=== PATIENT | male | born 1935 | race Caucasian/White ===

== ENCOUNTER → 2018-01-07 07:49 | Outpatient (CLI) | payer MEDICARE, BC, SELFPAY ==
[2018-01-07 14:01] LABS: Alanine Aminotransferase 28 U/L (12-78); Albumin Level 4.1 gm/dL (3.4-5.0); Albumin/Globulin Ratio 1.2 (1.1-1.8); Alkaline Phosphatase 88 U/L (46-116); Aspartate Amino Transferase 17 U/L (15-37); Bilirubin,Total 0.5 mg/dL (0.2-1.0); Blood Urea Nitrogen 24 mg/dL (7-18); Calcium 9.1 mg/dL (8.5-10.1); Carbon Dioxide 29 mmol/L (21.0-32.0); Chloride 102 mmol/L (98-107); Chol/HDL Ratio 5.7 (1-3.5); Cholesterol 178 mg/dL (140-200); Creatinine,Serum 1.13 mg/dL (0.70-1.30); Estimated Glomerular Filt Rate 62 ml/min (>60); GFR (African American) 75 ML/MIN (>60); Globulin 3.3 gm/dl (1.3-3.2); Glucose 139 mg/dL (74-106); HDL Cholesterol 31 mg/dL (27-67); LDL Cholesterol 116 mg/dL (0-130); Sodium 140 mmol/L (136-145); Thyroid Stimulating Hormone 1.88 uIU/ml (0.358-3.740); Total Protein,Serum 7.4 gm/dL (6.4-8.2); Triglycerides 156 mg/dL (30-200); VLDL Cholesterol 31 mg/dL (0-40)
[2018-01-07 14:12] LABS: Basophils # 0.1 K/mm3 (0-0.2); Basophils % 0.6 % (0.1-2.0); Eosinophils # 0.4 K/mm3 (0.0-0.4); Eosinophils % 5.5 % (0.1-12.0); Hematocrit 47.5 % (42.0-52.0); Hemoglobin 15.7 g/dL (14.1-18.0); Lymphocytes # 1.5 K/mm3 (0.7-4.5); Lymphocytes % 18.2 K/mm3 (10-50); Mean Corpuscular HGB Conc 33.1 g/dL (31.8-35.4); Mean Corpuscular Hemoglobin 31.4 pg (27.0-31.2); Mean Corpuscular Volume 95.1 fl (80-94); Mean Platelet Volume 9.1 fl (7.4-10.4); Monocytes # 0.5 K/mm3 (0.1-1.0); Monocytes % 5.9 % (1.7-9.3); Neutrophils # 5.6 K/mm3 (1.8-7.8); Neutrophils % 69.8 % (37.0-80.0); Platelet Count 159 K/mm3 (142-424); Red Cell Distribution Width 12.4 % (11.5-17.5)
== END ==
PROVIDERS: PCP Internal Medicine Adolescent Medicine; Visit Provider Internal Medicine Adolescent Medicine
DX: E78.5 Hyperlipidemia, unspecified (principal); E11.9 Type 2 diabetes mellitus without complications; L29.9 Pruritus, unspecified
CPT/HCPCS: 36415; 80053; 80061; 84443; 85025

== ENCOUNTER → 2020-06-23 07:55 | Outpatient (CLI) | payer MEDICARE, BC, SELFPAY ==
[2020-06-23 15:22] LABS: Basophils % 0.5 % (0.1-2.0); Eosinophils # 0.3 K/mm3 (0.0-0.4); Eosinophils % 3.4 % (0.1-12.0); Hematocrit 45.4 % (42.0-52.0); Hemoglobin 15.7 g/dL (14.1-18.0); Lymphocytes # 1.4 K/mm3 (0.7-4.5); Mean Corpuscular HGB Conc 34.6 g/dL (31.8-35.4); Mean Corpuscular Hemoglobin 33.5 pg (27.0-31.2); Mean Corpuscular Volume 96.7 fl (80-94); Mean Platelet Volume 9.7 fl (7.4-10.4); Monocytes # 0.5 K/mm3 (0.1-1.0); Monocytes % 6.8 % (1.7-9.3); Neutrophils # 5.8 K/mm3 (1.8-7.8); Neutrophils % 72.3 % (37.0-80.0); Platelet Count 140 K/mm3 (142-424); Red Cell Distribution Width 13.5 % (11.5-17.5)
[2020-06-23 15:28] LABS: Chloride 98 mmol/L (98-107); Sodium 136 mmol/L (136-145)
[2020-06-23 15:31] LABS: Alanine Aminotransferase 19 U/L (12-78); Albumin Level 4.1 g/dl (3.5-5.0); Albumin/Globulin Ratio 1.5 (1.1-1.8); Alkaline Phosphatase 90 U/L (38-126); Aspartate Amino Transferase 25 U/L (17-59); Blood Urea Nitrogen 16 mg/dl (9-20); Carbon Dioxide 28 mmol/L (22.0-30.0); Estimated Glomerular Filt Rate 80 ml/min (>60); GFR (African American) 97 ML/MIN (>60); Globulin 2.7 g/dL (1.3-3.2); Total Protein,Serum 6.8 g/dl (6.3-8.2)
[2020-06-23 15:32] LABS: Chol/HDL Ratio 4.8 (1-3.5); Cholesterol 167 mg/dl (140-200); Glucose 141 mg/dl (74-100); HDL Cholesterol 35 mg/dl (40-60); Triglycerides 110 mg/dl (30-150); VLDL Cholesterol 22 mg/dL (0-40)
[2020-06-23 15:43] LABS: Direct LDL Cholesterol 118.43 mg/dL (100-129)
[2020-06-23 16:31] LABS: Hemoglobin A1C 6.3 % (4.0-6.0)
== END ==
PROVIDERS: Visit Provider Internal Medicine Adolescent Medicine
DX: E11.9 Type 2 diabetes mellitus without complications (principal); E78.5 Hyperlipidemia, unspecified
CPT/HCPCS: 36415; 80053; 80061; 83036; 85025

== ENCOUNTER 2020-08-09 09:00 | Outpatient (RCR) | payer MEDICARE, BC, SELFPAY ==
--- NOTE | 2020-07-19 11:20 | HMH.PTOPEV ---
PT Outpatient Evaluation Rehab PT Outpatient Evaluation Start: 07/19/20 09:29 Freq: Status: Active Protocol: Document 07/19/20 09:29 [email or web address] (Rec: 07/19/20 09:58 [email or web address] [id number]) Electronically Signed By Manish Cunha, PT 07/19/20 09:29 Outpatient Therapy Subjective History Subjective History Pt. is a 85 year old male who presents to Outpatient PT clinic w/ complaints of chronic and constant but variable RLB/RLE P! of insidious onset for one year. Pt. reports symptoms were intermittent after onset, but have progressively worsened. Pt. reports symptoms worsening w/ sitting and symptom relief w/ standing/ ambulating. Pt. describes symptoms as a deep ache in the calf and numbness in the foot. Pt. reports some increased stiffness in the LLE w/ prolonged sitting, but RLE>LLE overall. Pt. denies having recent diagnostic imaging nor injections for current pathology. Current medications include for Hypertension(pt. unable to recall prescription name at this time). PMH includes Hypertension. Chief Complaint Pain,Stiff,Paresthesia Symptom Type Ache,Numbness Symptoms Relieved By Activity Symptoms Aggravated By Sitting,Bending/Stooping Prior Functional Limitations None Current Functional Limitations Driving,Sleeping,Sitting, Bending/Stooping Symptom Description Constant but Variable Level of pain today (0-10) 5 Pain scale - at its best (0-10) 4 Pain scale - at its worst (0-10) 7 Lumbopelvic Eval Posture Thoracic Spine Posture Standing Position Neutral Lumbar Spine Posture Standing Position Decreased Lordosis Assistive device Assistive Devices None / NA Gait Observation General Gait Pattern Observation No Deviations/Normal Palapation tenderness right thoracic spinal tenderness No lumbar spinal tenderness Yes: L1/L3/L4/L5 buttock tenderness Yes Lumbar/Sacral Palpation Findings Tenderness Lumbar/Sacral Palpation Overall Comment grade 3 +TTP to R QL, assessment
== END 2020-08-09 11:00 | disposition home or self-care (01) ==
LOC: PT.CARL 09:00
PROVIDERS: PCP Internal Medicine Adolescent Medicine; Visit Provider Internal Medicine Adolescent Medicine
DX: M54.31 Sciatica, right side (principal)
CPT/HCPCS: 97014; 97110; 97140; 97163; G0283

== ENCOUNTER → 2020-12-14 10:34 | Outpatient (CLI) | payer MEDICARE, BC, SELFPAY ==
[2020-12-14 14:22] LABS: Chloride 101 mmol/L (98-107); Hemoglobin A1C 6.4 % (4.0-6.0); Potassium 4.1 mmoL/L (3.5-5.1); Sodium 137 mmol/L (136-145)
[2020-12-14 14:25] LABS: Alanine Aminotransferase 18 U/L (12-78); Albumin Level 4.2 g/dl (3.5-5.0); Albumin/Globulin Ratio 1.4 (1.1-1.8); Alkaline Phosphatase 95 U/L (38-126); Anion Gap 11.1 mEq/L (5-15); Aspartate Amino Transferase 26 U/L (17-59); Bilirubin,Total 0.9 mg/dl (0.2-1.3); Blood Urea Nitrogen 16 mg/dl (9-20); Calcium 8.9 mg/dl (8.4-10.2); Carbon Dioxide 29 mmol/L (22.0-30.0); Cholesterol 175 mg/dl (140-200); Estimated Glomerular Filt Rate 80 ml/min (>60); GFR (African American) 97 ML/MIN (>60); Glucose 141 mg/dl (74-100); Total Protein,Serum 7.2 g/dl (6.3-8.2); Triglycerides 120 mg/dl (30-150); VLDL Cholesterol 24 mg/dL (0-40)
[2020-12-14 14:26] LABS: Chol/HDL Ratio 5.1 (1-3.5); HDL Cholesterol 34 mg/dl (40-60)
[2020-12-14 15:01] LABS: Basophils % 0.6 % (0.1-2.0); Eosinophils # 0.3 K/mm3 (0.0-0.4); Eosinophils % 4.2 % (0.1-12.0); Hematocrit 46.1 % (42.0-52.0); Hemoglobin 15.9 g/dL (14.1-18.0); Lymphocytes # 1.2 K/mm3 (0.7-4.5); Lymphocytes % 17.3 % (10-50); Mean Corpuscular HGB Conc 34.5 g/dL (31.8-35.4); Mean Corpuscular Hemoglobin 32.3 pg (27.0-31.2); Mean Corpuscular Volume 93.9 fl (80-94); Mean Platelet Volume 9.3 fl (7.4-10.4); Monocytes # 0.5 K/mm3 (0.1-1.0); Monocytes % 6.8 % (1.7-9.3); Neutrophils # 4.9 K/mm3 (1.8-7.8); Neutrophils % 71.2 % (37.0-80.0); Platelet Count 138 K/mm3 (142-424); Red Blood Count 4.91 M/mm3 (4.60-6.20); Red Cell Distribution Width 13.2 % (11.5-17.5); White Blood Count 6.9 K/mm3 (4.8-10.8)
== END ==
PROVIDERS: Visit Provider Internal Medicine Adolescent Medicine
DX: E78.5 Hyperlipidemia, unspecified (principal); E11.9 Type 2 diabetes mellitus without complications; J43.1 Panlobular emphysema
CPT/HCPCS: 36415; 80053; 80061; 83036; 85025

== ENCOUNTER → 2021-03-29 21:51 | Outpatient (CLI) | payer MEDICARE, BC, SELFPAY ==
[2021-03-29 22:43] LABS: Anion Gap 15.9 mEq/L (5-15); Blood Urea Nitrogen 17 mg/dl (9-20); Calcium 8.9 mg/dl (8.4-10.2); Carbon Dioxide 28 mmol/L (22.0-30.0); Chloride 98 mmol/L (98-107); Estimated Glomerular Filt Rate 80 ml/min (>60); GFR (African American) 97 ML/MIN (>60); Glucose 91 mg/dl (74-100); Potassium 3.9 mmoL/L (3.5-5.1); Sodium 138 mmol/L (136-145)
== END ==
PROVIDERS: Visit Provider Internal Medicine Adolescent Medicine
DX: I10 Essential (primary) hypertension (principal)
CPT/HCPCS: 80048

== ENCOUNTER → 2021-06-28 10:36 | Outpatient (CLI) | payer MEDICARE, BC, SELFPAY ==
[2021-06-28 13:53] LABS: Anion Gap 12.2 mEq/L (5-15); Blood Urea Nitrogen 17 mg/dl (9-20); Calcium 8.7 mg/dl (8.4-10.2); Carbon Dioxide 27 mmol/L (22.0-30.0); Chloride 100 mmol/L (98-107); Chol/HDL Ratio 4.2 (1-3.5); Cholesterol 160 mg/dl (140-200); Estimated Glomerular Filt Rate 80 ml/min (>60); GFR (African American) 97 ML/MIN (>60); Glucose 135 mg/dl (74-100); HDL Cholesterol 38 mg/dl (40-60); Potassium 4.2 mmoL/L (3.5-5.1); Sodium 135 mmol/L (136-145); Triglycerides 73 mg/dl (30-150); VLDL Cholesterol 15 mg/dL (0-40)
[2021-06-28 14:04] LABS: Direct LDL Cholesterol 105.45 mg/dL (100-129)
== END ==
PROVIDERS: Visit Provider Internal Medicine Adolescent Medicine
DX: E11.9 Type 2 diabetes mellitus without complications (principal); E78.5 Hyperlipidemia, unspecified; I10 Essential (primary) hypertension
CPT/HCPCS: 36415; 80048; 80061; 83036

== ENCOUNTER → 2022-03-16 19:43 | Outpatient (CLI) | payer MEDICARE, BC, SELFPAY ==
[2022-03-16 20:58] LABS: Anion Gap 15.2 mEq/L (5-15); Blood Urea Nitrogen 21 mg/dl (9-20); Calcium 8.7 mg/dl (8.4-10.2); Carbon Dioxide 25 mmol/L (22.0-30.0); Chloride 98 mmol/L (98-107); Estimated Glomerular Filt Rate 71 ml/min (>60); GFR (African American) 86 ML/MIN (>60); Glucose 88 mg/dl (74-100); Potassium 4.2 mmoL/L (3.5-5.1); Sodium 134 mmol/L (136-145)
== END ==
PROVIDERS: PCP Internal Medicine Adolescent Medicine; Visit Provider Internal Medicine Adolescent Medicine
DX: I10 Essential (primary) hypertension (principal)
CPT/HCPCS: 80048

== ENCOUNTER → 2022-06-22 06:56 | Outpatient (CLI) | payer MEDICARE, BC, SELFPAY ==
[2022-06-22 18:45] LABS: Basophils # 0.1 K/mm3 (0-0.2); Basophils % 1.4 % (0.1-2.0); Eosinophils # 0.2 K/mm3 (0.0-0.4); Eosinophils % 3.4 % (0.1-12.0); Hematocrit 43.8 % (42.0-52.0); Hemoglobin 14.8 g/dL (14.1-18.0); Lymphocytes # 1.1 K/mm3 (0.7-4.5); Lymphocytes % 15.5 % (10-50); Mean Corpuscular HGB Conc 33.8 g/dL (31.8-35.4); Mean Corpuscular Hemoglobin 33.3 pg (27.0-31.2); Mean Corpuscular Volume 98.6 fl (80-94); Mean Platelet Volume 10.3 fl (7.4-10.4); Monocytes # 0.5 K/mm3 (0.1-1.0); Monocytes % 7.8 % (1.7-9.3); Neutrophils # 4.9 K/mm3 (1.8-7.8); Neutrophils % 71.9 % (37.0-80.0); Platelet Count 152 K/mm3 (142-424); Red Blood Count 4.44 M/mm3 (4.60-6.20); Red Cell Distribution Width 13.1 % (11.5-17.5); White Blood Count 6.8 K/mm3 (4.8-10.8)
[2022-06-22 18:52] LABS: Alanine Aminotransferase 22 U/L (12-78); Albumin/Globulin Ratio 1.5 (1.1-1.8); Alkaline Phosphatase 103 U/L (38-126); Anion Gap 16.2 mEq/L (5-15); Aspartate Amino Transferase 30 U/L (17-59); Bilirubin,Total 0.6 mg/dl (0.2-1.3); Blood Urea Nitrogen 20 mg/dl (9-20); Calcium 8.6 mg/dl (8.4-10.2); Carbon Dioxide 26 mmol/L (22.0-30.0); Chloride 97 mmol/L (98-107); Chol/HDL Ratio 4.8 (1-3.5); Cholesterol 174 mg/dl (140-200); Estimated Glomerular Filt Rate 91 ml/min (>60); GFR (African American) 111 ML/MIN (>60); Globulin 2.7 g/dL (1.3-3.2); Glucose 119 mg/dl (74-100); HDL Cholesterol 36 mg/dl (40-60); Potassium 4.2 mmoL/L (3.5-5.1); Sodium 135 mmol/L (136-145); Total Protein,Serum 6.7 g/dl (6.3-8.2); Triglycerides 104 mg/dl (30-150); VLDL Cholesterol 21 mg/dL (0-40)
[2022-06-22 19:03] LABS: Direct LDL Cholesterol 116.48 mg/dL (100-129)
[2022-06-22 19:25] LABS: Hemoglobin A1C 5.5 % (4.0-6.0)
== END ==
PROVIDERS: PCP Internal Medicine Adolescent Medicine; Visit Provider Internal Medicine Adolescent Medicine
DX: L60.2 Onychogryphosis; I10 Essential (primary) hypertension; E11.69 Type 2 diabetes mellitus with other specified complication
CPT/HCPCS: 80053; 80061; 83036; 85025

== ENCOUNTER → 2023-01-16 16:57 | Outpatient (CLI) | payer MEDICARE, BC, SELFPAY ==
[2023-01-16 17:32] LABS: Basophils % 0.2 % (0.1-2.0); Eosinophils # 0.3 K/mm3 (0.0-0.4); Eosinophils % 4.2 % (0.1-12.0); Hematocrit 45.2 % (42.0-52.0); Hemoglobin 15.1 g/dL (14.1-18.0); Lymphocytes # 1.1 K/mm3 (0.7-4.5); Lymphocytes % 17.3 % (10-50); Mean Corpuscular HGB Conc 33.5 g/dL (31.8-35.4); Mean Corpuscular Hemoglobin 32.5 pg (27.0-31.2); Mean Corpuscular Volume 97.1 fl (80-94); Mean Platelet Volume 9.9 fl (7.4-10.4); Monocytes # 0.4 K/mm3 (0.1-1.0); Monocytes % 6.3 % (1.7-9.3); Neutrophils # 4.6 K/mm3 (1.8-7.8); Neutrophils % 71.9 % (37.0-80.0); Platelet Count 128 K/mm3 (142-424); Red Blood Count 4.65 M/mm3 (4.60-6.20); Red Cell Distribution Width 13.7 % (11.5-17.5); White Blood Count 6.4 K/mm3 (4.8-10.8)
[2023-01-16 18:07] LABS: Alanine Aminotransferase 20 U/L (12-78); Albumin Level 4.1 g/dl (3.5-5.0); Albumin/Globulin Ratio 1.6 (1.1-1.8); Alkaline Phosphatase 90 U/L (38-126); Anion Gap 11.9 mEq/L (5-15); Aspartate Amino Transferase 25 U/L (17-59); Bilirubin,Total 1.1 mg/dl (0.2-1.3); Blood Urea Nitrogen 20 mg/dl (9-20); Calcium 8.3 mg/dl (8.4-10.2); Carbon Dioxide 25 mmol/L (22.0-30.0); Chloride 102 mmol/L (98-107); Chol/HDL Ratio 4.7 (1-3.5); Cholesterol 164 mg/dl (140-200); Estimated Glomerular Filt Rate 80 ml/min (>60); GFR (African American) 97 ML/MIN (>60); Globulin 2.6 g/dL (1.3-3.2); Glucose 118 mg/dl (74-100); HDL Cholesterol 35 mg/dl (40-60); Potassium 3.9 mmoL/L (3.5-5.1); Sodium 135 mmol/L (136-145); Total Protein,Serum 6.7 g/dl (6.3-8.2); Triglycerides 107 mg/dl (30-150); VLDL Cholesterol 21 mg/dL (0-40)
[2023-01-16 18:18] LABS: Direct LDL Cholesterol 104.64 mg/dL (100-129)
[2023-01-16 19:39] LABS: Hemoglobin A1C 5.4 % (4.0-6.0)
== END ==
PROVIDERS: PCP Family Medicine; Visit Provider Family Medicine
DX: I10 Essential (primary) hypertension; L60.2 Onychogryphosis; E11.9 Type 2 diabetes mellitus without complications
CPT/HCPCS: 80053; 80061; 83036; 85025

== ENCOUNTER 2023-02-08 06:06 | Day surgery (SDC) | payer MEDICARE, BC, SELFPAY ==
[2023-02-08 06:25] VITALS: BP 165/68; PULSE 63; RESP 18; TEMP 36.4; O2SAT 99; BMI 29.1
[2023-02-08 06:38] LABS: POC Glucose,Bedside 112 (70-110)
[2023-02-08 07:42] VITALS: BP 119/69; PULSE 61; RESP 16; TEMP 36.2; O2SAT 95
--- NOTE | 2023-02-08 07:43 | EXP.OP.NOTE ---
Date of procedure: 02/08/23 Pre-op Diagnosis:: Skin neoplasm of uncertain behavior along left mid/upper back (2 cm) Post-op Diagnosis:: Same Procedure performed:: Excision of 2 cm skin lesion from left mid/upper back Surgeon:: Mitchell Mello MD Anesthesia: local Estimated blood loss (mL): 5 Operative findings:: Lesion excised with 1 mm margin Operative note:: After informed consent was obtained the patient was taken to the procedure room. He was maintained in a seated position. His left mid/upper back was prepped and draped in a sterile fashion. After infiltration with local anesthetic an elliptical incision was made around the lesion with scalpel. Electrocautery was utilized to transect through the deeper subcutaneous tissue. The lesion was excised in toto and passed off for pathologic evaluation after being marked for margin with 5-0 nylon suture (short superior/long lateral). Electrocautery was utilized to achieve hemostasis. Skin was reapproximated with interrupted 4-0 nylon. Dressings were applied and the patient was discharged in stable condition. Condition: stable Disposition: no change Specimens:: Left mid/upper back skin lesion Complications:: No immediate
[2023-02-08 08:00] VITALS: BP 119/69; PULSE 61; RESP 16; O2SAT 95
== END 2023-02-08 08:09 | disposition home or self-care (01) ==
PROVIDERS: PCP Family Medicine; Visit Provider Surgery
DX: C43.59 Malignant melanoma of other part of trunk (principal); Z79.899 Other long term (current) drug therapy; E11.9 Type 2 diabetes mellitus without complications
CPT/HCPCS: 11604; 82962; 88305; 88342; 88360

== ENCOUNTER → 2023-04-26 23:40 | Outpatient (CLI) | payer MEDICARE, BC, SELFPAY ==
[2023-04-26 17:31] LABS: Creatinine,Urine Random 92 mg/dL (Not Estab.)
[2023-04-26 18:04] LABS: Hemoglobin A1C 5.3 % (4.0-6.0)
== END ==
PROVIDERS: PCP Family Medicine; Visit Provider Family Medicine
DX: E11.9 Type 2 diabetes mellitus without complications (principal)
CPT/HCPCS: 82043; 82570; 83036

== ENCOUNTER 2023-06-05 17:45 | Emergency (ER) | payer MEDICARE, BC, SELFPAY ==
[2023-06-05 17:45] VITALS: BP 153/69; PULSE 64; RESP 16; TEMP 36.6; O2SAT 95; BMI 28.7
[2023-06-05 18:01] VITALS: BP 131/38; PULSE 62; RESP 18; O2SAT 95
--- NOTE | 2023-06-05 18:05 | HMH.EDGENADL ---
Discharge Plan Disposition Patient Disposition: Home, Self-Care Condition: Good Chief Complaint: Fall Prescriptions Prescriptions: No Action Spiriva Respimat 2.5 mcg/actuation mist 2.5 mcg INHALATION DAILY PRN (Reason: .) Patient Comments: INHALE TWO PUFFS 1 TIME EACH DAY triamcinolone acetonide 0.1 % lotion 1 applic topical DAILY Qty: 60 2RF ICaps AREDS [id number] liog-fm-vkso capsule 1 cap PO BID (DME) blood-glucose meter [True Metrix Glucose Meter] Misc See Rx Instructions .ROUTE .MEDSUPPLY Qty: 1 Rx Instructions: As directed (DME) lancets [Easy Comfort Lancets] 30 gauge misc See Rx Instructions .ROUTE .MEDSUPPLY Qty: 100 Rx Instructions: As directed carvedilol 25 mg tablet 25 mg PO BID 90 Days Qty: 180 0RF losartan 50 mg tablet 50 mg PO BID 90 Days Qty: 180 0RF amlodipine 2.5 mg tablet 2.5 mg PO DAILY 90 Days Qty: 90 0RF (DME) Easy Plus II Test Strip See Rx Instructions .Route Rx Instructions: As directed Referrals Follow up/Referrals: Familia Goldberg MD [Primary Care Provider] - See instructions Clinical Impressions Clinical Impression: Skin tear Instructions Patient Instructions: How to Prevent Falls Discharge ED Provider: Bhavik Webber General Adult HPI General Chief complaint: Fall Stated complaint: fall Time Seen by Provider: 06/05/23 17:57 Mode of Arrival: EMS Source of Information: Patient Limitations: No Limitations Description of Symptoms (Recalled from ER Triage Doc. by RN): Presents to ED after sustaining a fall at home after his leg gave out on him. Patient reports he had no lightheadedness/dizziness prior to the fall. - LOC/blood thinner use. Patient has 2 skin tears to the right arm. 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 Presents to ED after sustaining a fall at home after his leg gave out on him. Patient reports he had no lightheadedness/dizziness prior to the fall. Patient fell forwards but caught himself with RUE. No head trauma. - LOC/blood thinner use. Patient has 2 skin tears to the right arm. 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 11/07/18 05/24/23 mcg-226 mg-90 mg capsule (ICaps AREDS) tiotropium bromide 2.5 2.5 mcg inhalation DAILY PRN . 02/19/20 05/24/23 mcg/actuation mist for inhalation (Spiriva Respimat) blood-glucose meter (True Metrix #1 ea 09/18/22 05/24/23 Glucose Meter) lancets 30 gauge (Easy Comfort #100 ea 09/18/22 05/24/23 Lancets) blood sugar diagnostic (Easy Plus 02/08/23 05/24/23 II Test strips) Previous Rx's Medication Instructions Recorded carvedilol 25 mg tablet 25 mg PO BID HTN 90 days #180 tabs 03/08/23 losartan 50 mg tablet 50 mg PO BID HTN 90 days #180 tabs 03/08/23 amlodipine 2.5 mg tablet 2.5 mg PO DAILY . 90 days #90 tabs 04/30/23 triamcinolone acetonide 0.1 % 1 applic topical DAILY itching #60 05/24/23 lotion mL Allergies Allergy/AdvReac Type Severity Reaction Status Date / Time No Known Allergies Allergy Verified 05/24/23 15:13 [facility] Disclaimer: The information contained in this section may have been updated after the patient was seen, as this information can be updated by other users. Medical History Acquired hallux valgus of both feet BPH (benign prostatic hyperplasia) Callus of foot COPD (chronic obstructive pulmonary disease) Diabetic foot Encounter for wound care HTN (hypertension) Keratosis Lamellar nail dystrophy Malignant melanoma Onychodystrophy Onychogryphosis Onychomycosis Pain around toenail T2DM (type 2 diabetes mellitus) Surgical History H/O local excis
--- NOTE | 2023-06-05 18:10 | PC.NURSE ---
Patient's skin tears cleaned and wrapped.
[2023-06-05 18:13] VITALS: BP 138/51; PULSE 63; RESP 18; TEMP 36.6; O2SAT 96
== END 2023-06-05 18:15 | disposition home or self-care (01) ==
PROVIDERS: Emergency Provider Emergency Medicine; PCP Family Medicine
DX: S51.811A Laceration without foreign body of right forearm, initial encounter (principal); N40.0 Benign prostatic hyperplasia without lower urinary tract symptoms; J44.9 Chronic obstructive pulmonary disease, unspecified; E11.621 Type 2 diabetes mellitus with foot ulcer; I10 Essential (primary) hypertension; W18.30XA Fall on same level, unspecified, initial encounter
CPT/HCPCS: 99282

== ENCOUNTER 2023-10-29 09:00 | Outpatient (RCR) | payer MEDICARE, BC, SELFPAY ==
--- NOTE | 2023-09-04 11:12 | HMH.PTOPEV ---
PT Outpatient Evaluation Rehab PT Outpatient Evaluation Start: 09/04/23 09:05 Freq: Status: Active Protocol: Document 09/04/23 09:05 PDESEROUX (Rec: 09/04/23 11:12 PDESEROUX [id number]) E-signed By Manish Cunha, PT Outpatient Therapy Subjective History Subjective History Pt. is a 88 year old male who presents to [facility] Out[facility] Physical Therapy Services in [place] for the initial evaluation this date(09/04/23) w/ c/o chronic and intermittent R-sided lumbar and RLE hip/calf/great toe P!, numbness, and stiffness of insidious onset for about a year and a half. Pt. also c/o RLE knee giving out or buckling d/t weakness that has led to a fall back in May of 2023. Pt. reports symptoms worsen into the RLE w/ prolonged sitting and repeated switching from the gas/brake pedal while driving. Pt. reports symptoms will improve after standing and walking around after prolonged sitting . Pt. 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 Pt. denies having any injections for current complaint. Pt. denies saddle paresthesia, denies bowel/ bladder dysfunction, denies numbness into the LLE. Pt. also c/o chronic and intermittent RUE P!, numbness, and stiffness of insidious onset 1 year ago. Pt. reports increased weakness and stiffness in the RUE when the numbness is really bad. Current medications include mx . for Hypertension and rashes, pt. unable to recall prescription names at this time. PMH includes fx. R clavicle, S/P LUE shldr. skin excision d/t melanoma, Hypertension, DM-II, and auditory deficit. New diagnosis of cancer in past 12 Yes: dx. w/ melanoma in March? 2022, S/P LUE shldr. skin excision in March 2023 Chief Complaint Pain,Stiff,Gives out/Unstable, Paresthesia,Weakness Symptom Type Ache,Throb,Sharp,Dull,Numbness ,Shooting Symptoms Relieved By Activity Symptoms Aggravated By Sitting,Bending/Stooping, Physical Activity,Lifting Prior Functional Limitations None Current Functional Limitations Lifting,Driving,Sitting, Recreation Activity,Balance, Bending/Stooping Symptom Description Intermittent,Activity Dependent Level of pain today (0-10) 6 Pain scale - at its best (0-10) 0 Pain scale - at its worst (0-10) 10 Cervical Eval Palpation Cervical Muscles R Cervical Paraspinal,R CT Junction,R Upper Trapezius Cervical/Thoracic Palpation Findings Tenderness,Spasm,Trigger Point Posture Head/C-Spine Posture Sitting Position Flexed Head/C-Spine Posture Standing Position Flexed Flexibility Deficits Upper Trapezius Muscle Length (R) Severe Tightness Levaetor Scapulae Muscle Length (R) Severe Tightness Passive Joint Mobility Cervical PIVM Dec: R OA L OA R AA L AA R C2/3 L C2/3 R C3/4 L C3/4 R C4/5 L C4/5 R C5/6 L C5/6 R C6/7 L C6/7 R C7/T1 L C7/T1 AROM Cervical Spine Extension Active Range of 21 Motion (degrees) Cervical Spine Flexion Active Range of 17 Motion (degrees) Cervical Spine Right Lateral Flexion 12 Active Range of Motion (degrees) Cervical Spine Left Lateral Flexion 18 Active Range of Motion (degrees) Cervical Spine Right Rotation Active 60 Range of Motion (degrees) Cervical Spine Left Rotation Active 59 Range of Motion (degrees) MMT Right Deltoid (C5) 4 Good Biceps Brachii Strength Grade 4 Good Wrist Extension Strength Grade 4 Good Triceps Brachii Strength Grade 4 Good Wrist Flexion Strength Grade 4 Good Extensor Pollicis Longus Strength Grade 4 Good Finger Abduction Strength Grade 4 Good Altered Sensation Bilateral Comment light touch sensation vocalized symmetrical in C4-T1 patterns BUE Special Test C-Spine Foraminal Compression (Spurling) Negative Right Test C-Spine Foraminal Distraction Test Negative C-Spine Compression Test Negative Right Lumbopelvic Eval Posture Thoracic Spine Posture Standing Position Increased Kyphosis Lumbar Spine Posture Standing Position Flexed Assistive device Assistive Devices None / NA Gait Observation General Gait Pattern Observation No Deviations/Normal Palapation tenderness right thoracic spinal tenderness No lumbar spinal tenderness Yes: L5/S1 paraspinal tenderness No buttock tenderness Yes: piriformis mm./proximal and distal IT band Lumbar/Sacral Palpation Findings Tenderness Lumbar/Sacral Palpation Overall Comment grade 4 +TTP to assessment above, peroneal brevis/longus, gastroc/soleus mm Accessory Movement L-spine Vertebrae Accessory Movements Central P/A Stockwell,Right P/A that Elicit Symptoms Stockwell,Left P/A Stockwell L5 bilateral S1 bilateral Range of Motion Lumbar Spine Active Flexion Range of 43 Motion (degrees) Lumbar Spine Active Extension Range of 19 Motion (degrees) Left Lumbar Spine Lateral Flexion Active 9 Range of Motion (degrees) Right Lumbar Spine Lateral Flexion 7 Active Range of Motion (degrees) Lumbar Spine ROM Limitations Soft Tissue Tightness,Muscle Weakness,Pain Manual Muscle Test Right Knee Extension Strength Grade 4 Good Knee Flexion Strength Grade 4- Good- Hip Flexion Strength Grade 4- Good- Hip Abduction Strength Grade 4 Good Hip Adduction Strength Grade 4 Good Hip External Rotation Strength Grade 4- Good- Hip Internal Rotation Strength Grade 4- Good- Hip Extension Strength Grade 4 Good Gluteus Moiz Strength Grade 4 Good Extensor Hallucis Longus Strength Grade 4- Good- Ankle Dorsiflexion Strength Grade 4- Good- Gastronemius/Soleus Strength Grade 4- Good- DTR Rt Patellar 1+ Lt Patellar 1+ Rt Gastroc/Soleus 1+ Lt Gastroc/Soleus 1+ Altered Sensation Right LE Dermatome Level L4,L5,S1 Comment decreased light touch sensation vocalized in RLE compared to LLE in patterns above Special Tests Lumbar Spine Screen Positive Hip Piriformis Test Positive Right Sciatic Nerve Tension Test Positive Right Hip 90-90 Straight Leg Raise Test Positive Right Lumbar [place] Distraction Test/Manual Positive Traction Outpatient Therapy Assessment Impairments Problems/Impairmments Palpation Tenderness,Impaired Range of Motion,Impaired Strength,Impaired Sitting, Impaired Driving,Impaired Lifting,Impaired Bending, Impaired Balance,Subjective C/ O Pain,Impaired Self Care/Self Management Prognosis Rehab Potential Good Comment w/ HEP compliancy Clinical Impression Consistent with Diagnosis Yes Consistent with cervical/lumbar radiculopathy, R Short Term Goals Number of Weeks 2 Decreased Palpation Tenderness Yes: grade 1-2 +TTP to TTP assessment above Decrease Subjective C/O Pain Yes: worse:02/07 Patient to be Ind w/ HEP 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 will exhibit improvements in RLE knee buckling to reduce risk for fall Improve Oswestry Score Yes Improve Quick Dash Score Yes Decrease Subjective C/O Pain Yes: worse:2-12/08 Improve Self Care/Self Management Yes Patient to be Ind w/ Advanced HEP Yes Outpatient Therapy Plan of Care Treatment Plan May Include Therapeutic Exercise Including Home Yes Exercise Program Manual Therapy Techniques Yes Neuromuscular Re-education Yes Therapeutic Activities to Return to Yes Previous Functional/Work Level ADL/Self Care Education Yes Mechanical Traction Yes Thermal Modalities Yes Electrical Stimulation Yes Ultrasound/Phonophoresis Yes Iontophoresis Yes Vasopneumatic Compression Pump Yes Massage Yes Eval/Re-Eval Yes Frequency Times per week 2 Duration Number of Weeks 4-6 Addendums This patient is a candidate for social No or vocational rehab? Patient/Guardian verbally acknowledges Yes understanding of treatment program and consents to further treatment? Patient/Guardian verbally acknowledges Yes understanding of diagnosis, prognosis and goals for treatment? Eval Complexity PT Charges 03806 - Moderate Complexity Shoulder/Elbow Eval Shoulder Objective Measurements Elbow Objective Measurements PHYSICIAN CERTIFICATION: I certify the specified therapy services for Phill Mota are required, authorized, and reviewed every 30 days.
== END 2023-11-06 17:55 | disposition home or self-care (01) ==
LOC: PT 09:00
PROVIDERS: PCP Family Medicine; Visit Provider Family Medicine
DX: M54.9 Dorsalgia, unspecified (principal); M25.511 Pain in right shoulder
CPT/HCPCS: 97110; 97140; 97163; 97164

== ENCOUNTER 2024-03-06 08:35 | Emergency (ER) | payer MEDICARE, BC, SELFPAY ==
[2024-03-06] VITALS (13 sets, daily range): BP systolic 130–202; BP diastolic 60–95; PULSE 65–87; RESP 18; TEMP 36.4–36.6; O2SAT 93–97; BMI 28.5
--- NOTE | 2024-03-06 08:51 | CT_ITS ---
FINAL REPORT TECHNIQUE: Thin section axial CT with IV contrast supplemented with multiplanar reconstruction under CT angiogram protocol. 3-D reconstructions were performed. This study was performed with techniques to keep radiation doses as low as reasonably achievable (ALARA). Individualized dose reduction techniques using automated exposure control or adjustment of mA and/or kV according to the patient''s size were employed. CLINICAL HISTORY: possible stroke, R facial droop and dysarthria FINDINGS: There is mild irregularity of the left M1 segment without significant stenosis. There is decreased flow or occlusion of a distal branch or branches of the left MCA in the sylvian fissure. There is no evidence of proximal thrombus or occlusion. IMPRESSION: No proximal occlusion but decreased filling of the distal left MCA branch of uncertain etiology but distal occlusion is not excluded. Reviewed, Interpreted and Dictated by Reggie Bauer III, MD Transcribed by Augusta Vargas Authenticated and [facility]
--- NOTE | 2024-03-06 08:51 | XR_ITS ---
FINAL REPORT CLINICAL HISTORY: facial droop, rash, dysarthria, NIH2 FINDINGS: SINGLE-VIEW CHEST The heart size is normal. The mediastinum is normal. There is mild bibasilar atelectasis or scar. There are several presumed calcified granulomas. There is no pneumothorax. IMPRESSION: Bibasilar atelectasis versus scar. Reviewed, Interpreted and Dictated by Reggie Bauer III, MD Transcribed by Augusta Vargas Authenticated and [facility]
--- NOTE | 2024-03-06 08:51 | CT_ITS ---
FINAL REPORT CLINICAL HISTORY: possible stroke, R facial droop and dysarthria FINDINGS: Axial images of the head were obtained without contrast. Coronal reformatted images were also obtained. This study was performed with techniques to keep radiation doses as low as reasonably achievable (ALARA). Individualized dose reduction techniques using automated exposure control or adjustment of mA and/or kV according to the patient's size were employed. There is generalized age-appropriate atrophy. Periventricular low-attenuation areas are seen consistent with moderate chronic ischemic changes. There is no evidence of hemorrhage. 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 There is a left parafalcine, partially calcified 15 mm focus which likely represents a meningioma. There is no evidence of acute infarct. There is no evidence of shift of the midline structures. No skull abnormality is seen on the bone window images. IMPRESSION: Atrophy and moderate periventricular chronic ischemic changes. Probable left parafalcine meningioma. If indicated, MRI with and without contrast could further evaluate. No acute intracranial abnormality. Reviewed, Interpreted and Dictated by Reggie Bauer III, MD Transcribed by Augusta Vargas Authenticated and [facility]
--- NOTE | 2024-03-06 08:51 | CT_ITS ---
FINAL REPORT TECHNIQUE: Thin section axial CT with IV contrast supplemented with multiplanar reconstruction under CT angiogram protocol. This study was performed with techniques to keep radiation doses as low as reasonably achievable (ALARA). Individualized dose reduction techniques using automated exposure control or adjustment of mA and/or kV according to the patient''s size were employed. NASCET criteria was utilized during interpretation. CLINICAL HISTORY: possible stroke, R facial droop and dysarthria FINDINGS: Aortic arch: Arch shows no significant narrowing. Great vessel origins are widely patent. Right carotid: There is mild plaque of the right carotid artery without significant stenosis. There is calcified plaque at the right carotid bulb with less than 50% stenosis. Left carotid: There is mild plaque of the left carotid artery. There is calcified plaque at the left carotid bulb with 60% stenosis. The more distal ICA is intact. Vertebral: Left vertebral artery is dominant. No significant stenosis is present. IMPRESSION: Moderate stenosis of the left carotid bulb. Reviewed, Interpreted and Dictated by Reggie Bauer III, MD Transcribed by Augusta Vargas Authenticated and [facility]
--- NOTE | 2024-03-06 08:51 | ECG_ITS ---
APPROVED REPORT Exam: Resting ECG HR:78 bpm ECG Measurements Heart Rate 78 AXES UT 194 P 49 QRSd 83 QRS 69 QT 377 T 35 QTc 410 Conclusion SINUS RHYTHM Electronically signed by : LORY TANNER, 03/07/2024 08:30:08
--- NOTE | 2024-03-06 08:59 | ED_ITS ---
Discharge Plan Disposition Patient Disposition: Home, Self-Care Prescriptions Prescriptions: No Action Vabysmo 6 mg/0.05 mL solution 6 mg intravitreal Q4W ICaps AREDS [id number] hknk-tu-[id number] capsule 1 cap PO BID (DME) blood-glucose meter [True Metrix Glucose Meter] Misc See Rx Instructions .ROUTE .MEDSUPPLY Qty: 1 Rx Instructions: As directed (DME) lancets [Easy Comfort Lancets] 30 gauge misc See Rx Instructions .ROUTE .MEDSUPPLY Qty: 100 Rx Instructions: As directed amlodipine 2.5 mg tablet 2.5 mg PO BID 90 Days Qty: 180 0RF (DME) Easy Plus II Test Strip See Rx Instructions .Route Qty: 50 4RF Rx Instructions: As directed losartan 50 mg tablet 50 mg PO BID 90 Days Qty: 180 0RF Referrals Follow up/Referrals: Familia Goldberg MD [Primary Care Provider] - See instructions Rut Dewitt MD [Staff Physician] - See instructions Activity Restrictions/Add. Instructions Additional Instructions/Restrictions: Follow-up with your family doctor regarding this visit to the emergency department and need for monitoring. Call [facility] neuro[facility] to schedule an appointment for carotid artery disease and be sure to bring the image disc from today with you. The number to call for scheduling appointments is [phone]. Also talk to your family doctor about scheduling follow-up with Dr. Dewitt, neurology, for further neurologic workup, including MRI, etc., based on her evaluation. Call your family doctor to establish care for this visit to the emergency department and schedule follow-up within 48 hours to ensure improvement. If you have any worsening of your condition or any other concerning signs or symptoms, return to the emergency department or your primary care doctor for further evaluation. Clinical Impressions Clinical Impression: TIA (transient ischemic attack) Discharge ED Provider: Kashif Nino HPI General Chief Complaint: Neuro Symptoms/Deficit Stated Complaint: body rash, face droopy side of face Time Seen by Provider: 03/06/24 08:41 History of Present Illness HPI narrative: Please note that above description of symptoms, in this electronic medical record under categorization of recalled from ER triage doctor by RN are reflective of an initial nursing assessment, however, is not reflective of my full history and physical exam that was personally taken and clarified. Consequentially, this preceding description of symptoms, which may include the patient's categorized chief complaint in the EMR, do not reflect my personal clinical impression, and the ultimate description of history of present illness and patient stated complaints should be deferred to this section of the note. Unless stated otherwise or congruent with this section of the note, additional signs, symptoms, or incongruence should be interpreted as inaccurate with my clinical impression. Related Data Home Medications Medication Instructions Recorded Confirmed vitamins A,C,E-hyjh-tfwskn 4,296 1 cap PO BID . 11/07/18 03/06/24 mcg-226 mg-90 mg capsule (ICaps AREDS) blood-glucose meter (True Metrix #1 ea 09/18/22 03/06/24 Glucose Meter) lancets 30 gauge (Easy Comfort #100 ea 09/18/22 03/06/24 Lancets) faricimab-svoa 6 mg/0.05 mL 6 mg intravitreal Q4W 09/13/23 03/06/24 intravitreal solution (Vabysmo) Previous Rx's Medication Instructions Recorded amlodipine 2.5 mg tablet 2.5 mg PO BID . 90 days #180 tabs 10/22/23 blood sugar diagnostic (Easy Plus #50 ea 11/02/23 II Test strips) losartan 50 mg tablet 50 mg PO BID HTN 90 days #180 tabs 12/11/23 Allergies Allergy/AdvReac Type Severity Reaction Status Date / Time No Known Allergies Allergy Verified 12/13/23 10:51 [facility] Disclaimer: The information contained in this section may have been updated after the patient was seen, as this information can be updated by other users. 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 Pain around toenail Onychogryphosis Surgical History H/O local excision of skin lesion Hx of cataract surgery History of dental surgery Family History Other Cancer Social History (Reviewed 12/13/23 @ 10:51 by PHILLIP Rivas Smoking Status: Former smoker years smoked: 20 how long ago did patient quit smokin years ago alcohol intake: current alcohol intake frequency: 0-2 drinks per day substance use type: denies use current occupational status: retired Travel in the last 8 weeks: None household members: spouse housing: house marital status: education level: high school service: Yes caffeine: Yes special jostin needs: No do you feel safe at home: Yes victim of physical abuse: No victim of emotional abuse: No victim of sexual abuse: No would you like helpful sources: No ROS Obtained: Yes All systems reviewed & no additional complaints except as documented Physical Exam General General appearance: alert and in no apparent distress Head Head exam: atraumatic and normocephalic Eye Eye exam: Present PERRL and EOMI ENT ENT exam: Present other (Nasolabial fold flattening on the right with mild facial droop) Neck Neck exam: Present trachea midline Chest Chest inspection: Present normal inspection and symmetric chest wall rise Respiratory Respiratory exam: Present normal lung sounds bilaterally; Absent respiratory distress, wheezes, stridor, accessory muscle use or prolonged expiratory phase Cardiovascular Cardiovascular exam: Present regular rate, normal rhythm and other (Hypertensive about 210/110) Abdominal Exam Abdominal exam: Present soft; Absent distention or tenderness Extremities Exam Extremities exam: Absent edema Neurological Exam Neurological exam: Present alert, oriented X3, normal gait and motor sensory deficit; Absent CN II-XII intact (Dysarthria and right-sided facial droop, NIHSS 2) Skin Skin exam: Present warm and dry; Absent cyanosis, diaphoresis or pallor HEART Score HEART Score HEART Score assessment performed?: Yes History (anamnesis): Slightly suspicious ECG: Normal Age: >65 years Risk factors: 3 or more risk factors Troponin: </= normal limit HEART Score: 4 Critical Care Critical Care Time Critical Care Time: Yes (neuro) Attestation: On 03/06/24, the high probability of a clinically significant, sudden or life threatening deterioration of the following system(s) required my full and direct attention, intervention and personal management. The time I documented below is in addition to time spent performing reported procedures but includes the following listed in this critical care notation. Total Time Total Critical Care Time: 35 Medical Decision Making Medical Records Medical records reviewed: Yes I reviewed the patient's medical records. Nilesh Gutierrez Pt receiving controlled substance: No Nilesh was queried for this patient: No Vital Signs Vital Signs: 03/06/24 08:37 03/06/24 09:00 03/06/24 09:19 Temperature 97.6 F Temperature Source Oral Pulse Rate 80 77 Pulse Rate [Right] 87 Respiratory Rate 18 Blood Pressure 186/95 H 202/84 H Blood Pressure [Right Arm] 186/95 H Blood Pressure Mean [Right Arm] 125 Blood Pressure Source [Right Arm] Automatic Cuff 02 Sat by Pulse Oximetry 97 93 L 95 Oxygen Delivery Method Room Air Room Air 03/06/24 09:25 03/06/24 09:32 03/06/24 09:46 Temperature Temperature Source Pulse Rate 65 68 Pulse Rate [Right] Respiratory Rate Blood Pressure 202/84 H 148/60 H 143/72 H Blood Pressure [Right Arm] Blood Pressure Mean [Right Arm] Blood Pressure Source [Right Arm] 02 Sat by Pulse Oximetry 95 93 L Oxygen Delivery Method 03/06/24 10:00 03/06/24 10:15 03/06/24 10:30 Temperature Temperature Source Pulse Rate 73 71 73 Pulse Rate [Right] Respiratory Rate Blood Pressure 132/67 137/71 153/82 H Blood Pressure [Right Arm] Blood Pressure Mean [Right Arm] Blood Pressure Source [Right Arm] 02 Sat by Pulse Oximetry 94 L 94 L 93 L Oxygen Delivery Method Room Air 03/06/24 10:46 03/06/24 11:00 03/06/24 11:15 Temperature Temperature Source Pulse Rate 71 75 70 Pulse Rate [Right] Respiratory Rate Blood Pressure 136/66 130/73 155/67 H Blood Pressure [Right Arm] Blood Pressure Mean [Right Arm] Blood Pressure Source [Right Arm] 02 Sat by Pulse Oximetry 94 L 93 L 95 Oxygen Delivery Method Lab Data Labs: Lab Results 03/06/24 08:46: WBC 11.8 H, RBC 5.18, Hgb 16.9, Hct 51.3, MCV 99.1 H, MCH 32.6 H , MCHC 32.9, RDW 14.2, Plt Count 159, MPV 8.4, Neut % (Auto) 82.4 H, Lymph % (Auto) 11.0, Amador % (Auto) 5.1, Eos % (Auto) 1.2, Baso % (Auto) 0.4, Neut # (Auto) 9.7 H, Lymph # (Auto) 1.3, [place] # (Auto) 0.6, Eos # (Auto) 0.1, Baso # (Auto) 0.1, PT 11.7, INR 1.09, APTT 27.2, Sodium 136, Potassium 4.5, Chloride 105, Carbon Dioxide 24, Anion Gap 11.5, BUN 17, Creatinine 1.00, Estimated GFR 70, Est GFR ( Amer) 85, Glucose 126 H, Hemoglobin A1c 5.3, Calcium 8.8, Total Bilirubin 1.1, AST 34, ALT 25, Alkaline Phosphatase 105, Troponin I < 0.01, Total Protein 7.4, Albumin 4.3, Globulin 3.1, Albumin/Globulin Ratio 1.4, Triglycerides 89, Cholesterol 180, LDL Cholesterol Direct 107.51, VLDL Cholesterol 18, HDL Cholesterol 49, Cholesterol/HDL Ratio 3.7 H 03/06/24 11:15: Troponin I < 0.01, Urine Color Yellow, Urine Appearance Clear, Urine pH 7.0, Ur Specific [place] <= 1.005, Urine Protein Trace, Urine Glucose (UA) Negative, Urine Ketones Negative, Urine Blood Negative, Urine Nitrate Negative, Urine Bilirubin Negative, Urine Urobilinogen 0.2, Ur Leukocyte Esterase Negative, Urine RBC None, Urine WBC None, Ur Squamous Epith Cells None, Urine Bacteria None, Urine Opiates Screen Negative, Urine Methadone Screen Negative, Ur Barbituates Screen Negative, Ur Phencyclidine Scrn Negative, Ur Amphetamines Screen Negative, U Benzodiazepines Scrn Negative, Urine Cocaine Screen Negative, U Marijuana (THC) Screen Negative 03/06/24 08:46 03/06/24 08:46 Response Orders (Tests/Meds): ED MEDICATIONS Generic Name Dose Route Start Last Admin Trade Name Freq PRN Reason Stop Dose Admin Labetalol HCl 10 mg 03/06/24 08:51 03/06/24 09:25 Labetalol 20mg/4ml Syringe IV 10 mg Q10M PRN Administration BP >180/110 Miscellaneous 1 each 03/06/24 08:51 Consider Pt For Statin At Discharge-Stroke NOTAPPLIC 04/05/24 08:50 NEEDED PRN Reminder for med @discharge Sodium Chloride 10 ml 03/06/24 08:51 Sodium Chloride 0.9% 10ml Flush Syringe IV 04/05/24 08:50 NEEDED PRN Maintain IV Site Discontinued Medications Generic Name Dose Route Start Last Admin Trade Name Celso PRN Reason Stop Dose Admin Hydroxyzine Pamoate 25 mg 03/06/24 10:33 03/06/24 10:53 Hydroxyzine Pamoate 25mg Capsule PO 03/06/24 10:34 25 mg ONCE ONE Administration Iopamidol 100 ml 03/06/24 09:19 03/06/24 10:05 Iopamidol-370 (76%);100ml Bottle IV 03/06/24 09:20 100 ml ONCE ONE Administration Sodium Chloride 50 ml 03/06/24 09:19 03/06/24 10:05 0.9 % Sodium Chloride 50 Ml Vial IV 03/06/24 09:20 50 ml ONCE ONE Administration Sodium Chloride 10 ml 03/06/24 09:19 03/06/24 10:05 Sodium Chloride 0.9% 10ml Syr (Rad Only) IV 03/06/24 09:20 10 ml ONCE ONE Administration ORDERS Category Date Time Status CT angio head Stat Cat Scan 03/06/24 08:[address] angio neck Stat Cat Scan 03/06/24 08:[address] head/brain wo con Stat Cat Scan 03/06/24 08:51 Completed XR chest portable Stat Exams 03/06/24 08:51 Completed Activated Partial Thrombo Time Stat Lab 03/06/24 08:46 Completed Complete Blood Count Auto Diff Stat Lab 03/06/24 08:46 Completed Comprehensive Metabolic Panel Stat Lab 03/06/24 08:46 Completed Drug Screen,Urine Stat Lab 03/06/24 11:15 Completed Hemoglobin A1C Stat Lab 03/06/24 08:46 Completed Lipid Panel Stat Lab 03/06/24 08:46 Completed Prothrombin Time INR Stat Lab 03/06/24 08:46 Completed Troponin I Q3H Lab 03/06/24 11:15 Completed Troponin I Q3H Lab 03/06/24 15:00 Ordered Troponin I Stat Lab 03/06/24 08:46 Completed Urinalysis and Microscopic Stat Lab 03/06/24 11:15 Completed ECG Request Stat Y 03/06/24 08:51 Ordered MDM Narrative Medical Decision Narrative: 89-year-old male history of hypertension, hyperlipidemia, type 2 diabetes, presenting with multiple complaints. Patient states that around 3 AM today, 03/06, he woke up with a rash around his neck, trunk, bilateral upper extremities. Also states at that time, he noticed that he was having difficulty speaking, facial droop on the right side. Went back to bed, got his up around 5:30 AM today, /, still obvious deficits, corroborates his story. Denying right-sided weakness otherwise. Patient denies chest pain, vision changes, numbness, other neurologic deficits, abdominal pain, fevers, chills, confusion, or otherwise. He does state that he started taking a B complex vitamin last week and concern for diabetic retinopathy and eye health. History was obtained via conversation with patient and . On arrival, patient hemodynamically stable, alert, oriented x4, appropriate, GCS 15, moving all extremities spontaneously, pupils equal and reactive to light. Full physical exam performed and significant for NIHSS 3. He has dysarthria, mild, and mild right-sided facial droop. Forehead sparing. Cardiopulmonary exam within normal limits, pulses equal and symmetric in bilateral upper and lower extremities, lungs are clear to auscultation bilaterally anterior and posterior. Abdomen is soft, nontender, nondistended. 1+ lower extremity pitting edema. Differential includes embolic versus hemorrhagic stroke, ACS, WI, arrhythmia, metabolic abnormality, polypharmacy, hypertensive emergency, medication side effect, supplement side effect, among others.. Patient was given 10 mg labetalol IV for symptomatic management and correction of underlying abnormalities. Workup independently interpreted and significant for nonactionable CBC or chemistry. Glucose only 126, troponin negative. Chest x-ray without acute cardiopulmonary space disease. CT head without acute intracranial hemorrhage. CTA head and neck without acute vascular stenosis in the head, but severe stenosis right carotid. This was discussed with neurosurgery at [facility]. See radiology read for full review of final results. Independent interpretation of EKG shows sinus rhythm 78 beats a minute without ST or T wave changes concerning for acute ischemia. IN 194, QRS 83, QTc 410. Blackey normal. Patient placed on continuous cardiac monitoring and continuous pulse ox with initial blood pressure 186/95, heart rate 87, saturation 97% on room air. Heart score 4. Patient was placed in observation beginning at 9 AM in order to rule out evolving WI with delta troponins and determine need for admission versus home-going. The patient was provided serial exams, monitoring while awaiting results. Independent interpretation of results demonstrated negative delta troponin. On reevaluation, patient and both state that patient's symptoms are resolved at this point. At this time, I feel patient is appropriate for discharge with outpatient neurology follow-up. Patient's A1c and lipids are controlled, on maximal medication management. Because patient at baseline without signs or symptoms of clinical decompensation, deemed appropriate for discharge. Results were relayed to patient who voiced understanding and were agreeable to outpatient management and follow up. I discussed my clinical impression with patient and answered all questions. At this time, the evidence for any other entities in the differential is insufficient to warrant any further testing or ED observation. This was explained as well. Advisory was given that persistent or worsening symptoms require further evaluation. I confirmed the understanding of this discussion. [employer]position [employer] disclaimer Much of this encounter note is an electronic assistant professor of biology spoken language to printed text. Electronic assistant professor of biology of the spoken language may permit errors. Although I have reviewed the note, some errors may still exist.
[2024-03-06 09:01] LABS: Basophils # 0.1 K/mm3 (0-0.2); Basophils % 0.4 % (0.1-2.0); Eosinophils # 0.1 K/mm3 (0.0-0.4); Eosinophils % 1.2 % (0.1-12.0); Hematocrit 51.3 % (42.0-52.0); Hemoglobin 16.9 g/dL (14.1-18.0); Lymphocytes # 1.3 K/mm3 (0.7-4.5); Mean Corpuscular HGB Conc 32.9 g/dL (31.8-35.4); Mean Corpuscular Hemoglobin 32.6 pg (27.0-31.2); Mean Corpuscular Volume 99.1 fl (80-94); Mean Platelet Volume 8.4 fl (7.4-10.4); Monocytes # 0.6 K/mm3 (0.1-1.0); Monocytes % 5.1 % (1.7-9.3); Neutrophils # 9.7 K/mm3 (1.8-7.8); Neutrophils % 82.4 % (37.0-80.0); Platelet Count 159 K/mm3 (142-424); Red Blood Count 5.18 M/mm3 (4.60-6.20); Red Cell Distribution Width 14.2 % (11.5-17.5); White Blood Count 11.8 K/mm3 (4.8-10.8)
[2024-03-06 09:02] LABS: Chloride 105 mmol/L (98-107); Potassium 4.5 mmoL/L (3.5-5.1); Sodium 136 mmol/L (136-145)
--- NOTE | 2024-03-06 09:03 | PC.NURSE ---
Patient gone to CT at this time.
[2024-03-06 09:04] LABS: Alanine Aminotransferase 25 U/L (12-78); Aspartate Amino Transferase 34 U/L (17-59); Blood Urea Nitrogen 17 mg/dl (9-20); Estimated Glomerular Filt Rate 70 ml/min (>60); GFR (African American) 85 ML/MIN (>60)
[2024-03-06 09:05] LABS: Albumin Level 4.3 g/dl (3.5-5.0); Albumin/Globulin Ratio 1.4 (1.1-1.8); Alkaline Phosphatase 105 U/L (38-126); Anion Gap 11.5 mEq/L (5-15); Bilirubin,Total 1.1 mg/dl (0.2-1.3); Calcium 8.8 mg/dl (8.4-10.2); Carbon Dioxide 24 mmol/L (22.0-30.0); Chol/HDL Ratio 3.7 (1-3.5); Cholesterol 180 mg/dl (140-200); Globulin 3.1 g/dL (1.3-3.2); Glucose 126 mg/dl (74-100); HDL Cholesterol 49 mg/dl (40-60); Total Protein,Serum 7.4 g/dl (6.3-8.2); Triglycerides 89 mg/dl (30-150); VLDL Cholesterol 18 mg/dL (0-40)
[2024-03-06 09:08] LABS: Activated Partial Thrombo Time 27.2 seconds (22.8-30.6); INR 1.09 (0.9-1.1); Prothrombin Time 11.7 seconds (10.1-12.5)
[2024-03-06 09:16] LABS: Direct LDL Cholesterol 107.51 mg/dL (100-129)
[2024-03-06 09:20] LABS: Troponin I < 0.01 ng/ml (0.00-0.034)
[2024-03-06] MEDS: LABETALOL 20MG/4ML SYRINGE 10 MG IV (09:25)
[2024-03-06] MEDS: IOPAMIDOL-370 (76%);100ML BOTTLE 100 ML IV (10:05)
[2024-03-06] MEDS: SODIUM CHLORIDE 0.9% 10ML SYR (RAD ONLY) 10 ML IV (10:05)
[2024-03-06] MEDS: 0.9 % SODIUM CHLORIDE 50 ML VIAL IV (10:05)
--- NOTE | 2024-03-06 10:27 | PC.NURSE ---
dr gallego at bedside to update pt and family
[2024-03-06] MEDS: hydrOXYzine pamoate 25MG CAPSULE 25 MG PO (10:53)
--- NOTE | 2024-03-06 10:55 | PC.NURSE ---
MEDICATED PER EMAR, NO NEEDS AT THIS TIME. CALL LIGHT WITHIN REACH
[2024-03-06 11:20] LABS: Microscopic, Urine URINE MICROSCOPIC (MICROSCOPIC)
[2024-03-06 11:25] LABS: Appearance,Urine CLEAR (Clear); Bilirubin,Urine Negative (Negative); Blood, Urine Negative (Negative); Color,Urine YELLOW (Yellow); Glucose,Urine (UA) Negative (Negative); Ketones,Urine Negative (Negative); Leukocyte Esterase,Urine Negative (Negative); Nitrate,Urine Negative (Negative); Protein,Urine TRACE (Negative); Specific Gravity, Urine <= 1.005 (1.005-1.030); Urobilinogen,Urine 0.2 EU/dl (0.2)
[2024-03-06 11:29] LABS: Hemoglobin A1C 5.3 % (4.0-6.0)
[2024-03-06 11:39] LABS: Benzodiazepines Screen,Urine Negative ng/ml (<200)
[2024-03-06 11:40] LABS: Amphetamine/Metha Screen,Urine Negative ng/ml (<1000); Barbiturates Screen,Urine Negative ng/ml (<200)
[2024-03-06 11:43] LABS: Cannabinoid Screen,Urine Negative ng/ml (<50); Cocaine Screen,Urine Negative ng/ml (<300)
[2024-03-06 11:44] LABS: Methadone Screen,Urine Negative ng/ml (<300)
[2024-03-06 11:45] LABS: Opiate Screen,Urine Negative ng/ml (<300); Phencyclidine Screen,Urine Negative ng/ml (<25)
[2024-03-06 11:55] LABS: Troponin I < 0.01 ng/ml (0.00-0.034)
--- NOTE | 2024-03-06 12:08 | PC.NURSE ---
DR TANNER AT BEDSIDE TO UPDATE PT AND FAMILY
== END 2024-03-06 12:21 | disposition home or self-care (01) ==
PROVIDERS: Emergency Provider Emergency Medicine; PCP Family Medicine
DX: G45.9 Transient cerebral ischemic attack, unspecified (principal); I10 Essential (primary) hypertension; E11.9 Type 2 diabetes mellitus without complications; E78.5 Hyperlipidemia, unspecified; J44.9 Chronic obstructive pulmonary disease, unspecified; Z87.891 Personal history of nicotine dependence; R29.703 NIHSS score 3
CPT/HCPCS: 70450; 70496; 70498; 71045; 80053; 80061; 80307; 81001; 83036; 84484; 85025; 85610; 85730; 93005; 96374; 99285; Q9967

== ENCOUNTER 2024-03-14 10:08 | Outpatient (CLI) | payer MEDICARE, BC, SELFPAY ==
--- NOTE | 2024-03-14 10:08 | CA_ITS ---
FINAL REPORT TECHNIQUE: Color Doppler, duplex Doppler and graff scale sonography of the bilateral neck vasculature was performed. Velocities were measured in the carotid arteries. Stenosis evaluation based on velocity criteria. CLINICAL HISTORY: TIA, Left CCA stenosis per CT COMPARISON: None FINDINGS: The peak systolic velocity of the right common carotid artery is 61 cm/sec and internal carotid artery 122 cm/sec. The diastolic velocity in the internal carotid artery is 28 cm/sec. The ICA/CCA ratio is 3.1. Visually, a small to moderate amount of plaque is seen. These findings are consistent with less than 50% stenosis. The external carotid artery is patent. The right vertebral artery is patent with antegrade flow. The peak systolic velocity of the left common carotid artery is 86 cm/sec and internal carotid artery 138 cm/sec. The diastolic velocity in the internal carotid artery is 24 cm/sec. The ICA/CCA ratio is 1.6. Visually, a small to moderate amount of plaque is seen. These findings are consistent with less than 50% stenosis. The external carotid artery is patent. The left vertebral artery is patent with antegrade flow. IMPRESSION: Findings consistent with less than 50% stenosis based on velocities. Bilateral patent vertebral arteries. If indicated, CTA or MRA could further evaluate. Reviewed, Interpreted and Dictated by Reggie Bauer III, MD Transcribed by Portia Shaw Authenticated and [facility]
== END 2024-03-14 23:59 | disposition home or self-care (01) ==
LOC: RT 10:08
PROVIDERS: PCP Family Medicine; Visit Provider Family Medicine
DX: I65.23 Occlusion and stenosis of bilateral carotid arteries (principal)
CPT/HCPCS: 93880

== ENCOUNTER 2024-05-02 08:38 | Outpatient (CLI) | payer MEDICARE, BC, SELFPAY ==
--- NOTE | 2024-05-02 08:39 | MR_ITS ---
FINAL REPORT CLINICAL HISTORY: r/o TIA COMPARISON: None FINDINGS: Multi planar MR imaging was obtained through the brain without contrast. The midline structures appear intact. There is mild to moderate atrophy. Proportional ventriculomegaly is noted. There is moderate abnormal signal in the periventricular white matter consistent with chronic ischemia. On diffusion-weighted images there is no evidence of restricted diffusion. The visualized paranasal sinuses demonstrate normal signal voids. The seventh and eighth nerve root complexes are intact. IMPRESSION: Atrophy and chronic ischemia without acute intracranial abnormality. Reviewed, Interpreted and Dictated by Tim Coffman MD Transcribed by My [employer] Authenticated and . [facility]
== END 2024-05-02 23:59 | disposition home or self-care (01) ==
LOC: RAD 08:39
PROVIDERS: PCP Family Medicine; Visit Provider Specialist
DX: I67.82 Cerebral ischemia (principal); G31.9 Degenerative disease of nervous system, unspecified; R21 Rash and other nonspecific skin eruption; I10 Essential (primary) hypertension; Z87.891 Personal history of nicotine dependence
CPT/HCPCS: 70551

== ENCOUNTER → 2024-06-10 14:37 | Outpatient (CLI) | payer MEDICARE, BC, SELFPAY | LOC: SL 14:38 | PROVIDERS: PCP Family Medicine; Visit Provider Specialist | DX: G47.33 Obstructive sleep apnea (adult) (pediatric) (principal) | CPT/HCPCS: G0399 ==